=== PATIENT | female | born 1990 | race Caucasian/White ===

== ENCOUNTER 2016-04-19 17:00 | Emergency (ER) | payer MEDICAID ==
[2016-04-19 17:26] VITALS: BP 154/86
[2016-04-19] MEDS ORDERED: LORazepam 0.5 MG Tab ONE (17:32)
--- NOTE | 2016-04-20 08:57 | EDM.PDOC ---
ED HISTORY OF PRESENT ILLNESS - General Chief Complaint: Chest Pain Stated Complaint: CHEST PAIN Time Seen by Provider: 04/19/16 17:30 Source: Reports: Patient History Limitations: Reports: No limitations - History of Present Illness INITIAL COMMENTS - FREE TEXT/NARRATIVE: This is a 25yo F here for chest pain. Patient denies any sob or other issues. Patient has had this chest pain in the past, she has also seen cardiology and has been setup with an lab animal technician. Patient has had prior holter, EKG and Echo done without any findings. Patient does have history of anxiety. 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: , Other (see below) Other OB/BYN History: threatened miscarriage with second , history of preeclampsia Neurological History: Reports: Headaches, chronic Psychiatric History: Reports: Anxiety - Infectious Disease History Infectious Disease History: Reports: Chicken pox - Past Surgical History HEENT Surgical History: Reports: Tonsillectomy GI Surgical History: Reports: Appendectomy Social & Family History - Family History Family Medical History: Noncontributory Cardiac: Reports: Afib, Other (see below) Other Cardiac Family History: cardiac ablation for brother and father - Tobacco Use Smoking Status *Q: Current Every Day Smoker Years of Tobacco use: 10 Packs/Tins Daily: 0.2 Used Tobacco, but Quit: No Second Hand Smoke Exposure: No - Caffeine Use Caffeine Use: Reports: None - Recreational Drug Use Recreational Drug Use: No ED ROS GENERAL - Review of Systems Review Of Systems: ROS reveals no pertinent complaints other than HPI. ED EXAM, GENERAL - Physical Exam Exam: See Below Exam Limited By: No limitations General Appearance: alert, WD/WN, anxious Eye Exam: bilateral eye: EOMI, PERRL Ears: normal external exam Nose: normal inspection Throat/Mouth: Normal inspection Head: atraumatic, normocephalic Neck: normal inspection, supple, non-tender Respiratory/Chest: no respiratory distress, lungs clear, normal breath sounds Cardiovascular: normal peripheral pulses, tachycardia GI/Abdominal: normal bowel sounds, soft, non tender Extremities: normal inspection Neurological: alert, oriented, CN II-XII intact Psychiatric: normal affect, normal mood Skin Exam: Warm, Dry, Intact Course - Vital Signs Last Recorded V/S: Last Vital Signs Temp 36.9 C 04/19/16 17:07 Pulse Resp 18 04/19/16 17:07 BP 154/86 H 04/19/16 17:07 Pulse Ox 100 04/19/16 17:07 - Orders/Labs/Meds Orders: Active Orders 24 hr Category Date Time Status EKG Documentation Completion [RC] ASDIRECTED Care 04/19/16 17:13 Active Labs: Laboratory Tests 04/19/16 04/19/16 Range/Units 17:24 17:24 WBC 10.1 (4.0-11.0) K/uL RBC 4.96 (3.80-5.80) M/uL Hgb 15.0 (11.5-16.5) g/dL Hct 41.9 (37.0-47.0) % MCV 85 (76-96) fL MCH 30.2 (27.0-32.0) pg MCHC 35.8 H (31.0-35.0) g/dL RDW 12.9 (11.0-16.0) % Plt Count 170 (150-500) K/uL MPV 11.5 H (6.0-10.0) fL Neut % (Auto) 59.6 (45.0-70.0) % Lymph % (Auto) 32.7 (20.0-40.0) % [place] % (Auto) 5.8 (3.0-10.0) % Eos % (Auto) 1.7 (1.0-5.0) % Baso % (Auto) 0.2 (0.0-0.5) % Neut # 6.03 (2.00-7.50) K/uL Lymph # 3.31 (1.50-4.00) K/uL [place] # 0.59 (0.20-0.80) K/uL Eos # 0.17 (0.04-0.40) K/uL Baso # 0.02 (0.02-0.10) K/uL Sodium 140 (136-145) mmol/L Potassium 4.2 (3.5-5.1) mmol/L Chloride 103 (98-107) mmol/L Carbon Dioxide 27.2 (21.0-32.0) mmol/L Anion Gap 14.0 (5.0-15.0) mmol/L BUN 13 (8-26) mg/dL Creatinine 0.76 (0.55-1.02) mg/dL Est Cr Clr Drug Dosing 104.09 mL/min Estimated GFR (MDRD) > 60 (>60) MLS/MIN BUN/Creatinine Ratio 17.1 (6-25) Glucose 122 H D (74-100) mg/dL Calcium 8.8 (8.5-10.1) mg/dL Troponin I < 0.017 (0.000-0.060) ng/mL Meds: Medications Discontinued Medications Generic Name Dose Route Start Last Admin Trade Name Lennie PRN Reason Stop Dose Admin Lorazepam Confirm 04/19/16 17:32 Ativan Administered 04/19/16 17:33 Dose 3 mg .ROUTE .STK-MED ONE Departure - Departure Time of Disposition: 18:00 Disposition: Home, Self-Care 01 Condition: good Clinical Impression: Chest pain Qualifiers: Chest pain type: other chest pain Qualified Code(s): R07.89 - Other chest pain ; R07.8 - Other chest pain Instructions: Paroxysmal Supraventricular Tachycardia, Lorazepam tablets Referrals: PCP,Unknown [Primary Care Provider] - Forms: ED Department Discharge Additional Instructions: May take Lorazepam 0.5mg (1 tab) by mouth every 6 hours as needed for anxiety. Keep appointment with your Polishing Wheel Setter. Follow up either at the clinic or ER if you continue to have chest pain and heart palpitations. - Problem List Review Problem List Initiated/Reviewed/Updated: Yes - My Orders Last 24 Hours: My Active Orders 04/19/16 17:13 EKG Documentation Completion [RC] ASDIRECTED - Assessment/Plan Last 24 Hours: My Active Orders 04/19/16 17:13 EKG Documentation Completion [RC] ASDIRECTED Plan: Patient will f/u with electrophysiology consult in 2 wks. This pain is likely due to anxiety or also possibly from SVT but these were not observed or recorded on EKG nor on prior holter. She will be given temporary lorazepam 6 tablets total as this has helped her symptoms in the past. She has significant family history of SVT in her dad and brother bother requiring ablation and this may be likely her route to resolution. Counseled on close monitoring and f/u as directed and as needed.
== END 2016-04-19 18:06 | disposition home or self-care (01) ==
LOC: LB.ED 17:00
DX: R07.89 Other chest pain (principal); I10 Essential (primary) hypertension; F41.9 Anxiety disorder, unspecified; F17.210 Nicotine dependence, cigarettes, uncomplicated; Z91.09 Other allergy status, other than to drugs and biological substances; Z98.890 Other specified postprocedural states; Z90.49 Acquired absence of other specified parts of digestive tract
CPT/HCPCS: 36415; 80048; 84484; 85025; 93005; 99283-25

== ENCOUNTER 2016-08-02 14:24 | Emergency (ER) | payer MEDICAID ==
--- NOTE | 2016-08-02 14:31 | EDM.PDOC ---
ED HPI GENERAL MEDICAL PROBLEM - General Chief Complaint: Chest Pain Stated Complaint: chest pressure Time Seen by Provider: 08/02/16 14:31 Source of Information: Reports: Patient History Limitations: Reports: No Limitations - History of Present Illness INITIAL COMMENTS - FREE TEXT/NARRATIVE: This is a 25yo F here for chest discomfort and a racing heart. Patient states she has had this issue for months and has been worked up with Cardiology and the credit collection specialist and placed on Propranolol. Patient states there is some improvement but she continues to have chest discomfort and racing heart episodes. She is here for the same symptoms she has frequently for the past few months. Patient denies any lightheadedness, no syncope, no fever, no chills, and no other symptoms. 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: , 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 (See Below) Other OB/BYN History: threatened miscarriage with second , history of preeclampsia Neurological History: Reports: Headaches, Chronic Psychiatric History: Reports: Anxiety - Infectious Disease History Infectious Disease History: Reports: Chicken Pox - Past Surgical History HEENT Surgical History: Reports: Tonsillectomy GI Surgical History: Reports: Appendectomy Social & Family History - Family History Family Medical History: Noncontributory Cardiac: Reports: Afib, Other (See Below) Other Cardiac Family History: cardiac ablation for brother and father - Tobacco Use Smoking Status *Q: Current Every Day Smoker Years of Tobacco use: 10 Packs/Tins Daily: 0.2 Used Tobacco, but Quit: No Second Hand Smoke Exposure: No - Caffeine Use Caffeine Use: Reports: None - Recreational Drug Use Recreational Drug Use: No ED ROS GENERAL - Review of Systems Review Of Systems: ROS reveals no pertinent complaints other than HPI. ED EXAM, GENERAL - Physical Exam Exam: See Below Exam Limited By: No Limitations General Appearance: Alert, WD/WN, Anxious Eye Exam: Bilateral Eye: EOMI, PERRL Ears: Normal External Exam Nose: Normal Inspection Throat/Mouth: Normal Inspection Head: Atraumatic, Normocephalic Neck: Normal Inspection, Supple Respiratory/Chest: No Respiratory Distress, Lungs Clear, Normal Breath Sounds Cardiovascular: Normal Peripheral Pulses, Regular Rate, Rhythm, No Edema, No Gallop, No JVD, No Murmur, No Rub GI/Abdominal: Normal Bowel Sounds, Soft, Non-Tender Extremities: Normal Inspection, Normal Range of Motion Neurological: Alert, Oriented, CN II-XII Intact Psychiatric: Normal Affect, Anxious Skin Exam: Warm, Dry, Intact EKG INTERPRETATION Rhythm: NSR [place]: Normal P-Wave: Present QRS: Normal ST-T: Normal QT: Normal Course - Vital Signs Last Recorded V/S: Last Vital Signs Temp 36.6 C 08/02/16 15:24 Pulse 67 08/02/16 15:24 Resp 18 08/02/16 15:24 BP 117/76 08/02/16 15:24 Pulse Ox 99 08/02/16 15:24 - Orders/Labs/Meds Orders: Active Orders 24 hr Category Date Time Status EKG Documentation Completion [RC] ASDIRECTED Care 08/02/16 14:32 Active Labs: Laboratory Tests 08/02/16 08/02/16 Range/Units 15:00 15:00 WBC 10.7 (4.0-11.0) K/uL RBC 5.16 (3.80-5.80) M/uL Hgb 15.8 (11.5-16.5) g/dL Hct 44.3 (37.0-47.0) % MCV 86 (76-96) fL MCH 30.6 (27.0-32.0) pg MCHC 35.7 H (31.0-35.0) g/dL RDW 13.0 (11.0-16.0) % Plt Count 208 D (150-500) K/uL MPV 11.4 H (6.0-10.0) fL Neut % (Auto) 59.5 (45.0-70.0) % Lymph % (Auto) 32.2 (20.0-40.0) % [place] % (Auto) 5.4 (3.0-10.0) % Eos % (Auto) 2.6 (1.0-5.0) % Baso % (Auto) 0.3 (0.0-0.5) % Neut # (Auto) 6.38 (2.00-7.50) K/uL Lymph # (Auto) 3.45 (1.50-4.00) K/uL [place] # (Auto) 0.58 (0.20-0.80) K/uL Eos # (Auto) 0.28 (0.04-0.40) K/uL Baso # (Auto) 0.03 (0.02-0.10) K/uL Sodium 138 (136-145) mmol/L Potassium 3.7 (3.5-5.1) mmol/L Chloride 102 (98-107) mmol/L Carbon Dioxide 28.0 (21.0-32.0) mmol/L Anion Gap 11.7 (5.0-15.0) mmol/L BUN 13 (8-26) mg/dL Creatinine 0.72 (0.55-1.02) mg/dL Est Cr Clr Drug Dosing TNP Estimated GFR (MDRD) > 60 (>60) MLS/MIN BUN/Creatinine Ratio 18.1 (6-25) Glucose 101 H (74-100) mg/dL Calcium 9.2 (8.5-10.1) mg/dL Magnesium 2.1 (1.8-2.4) mg/dL Total Bilirubin 0.4 D (0.0-1.0) mg/dL AST 14 L (15-37) U/L ALT 21 (12-78) U/L Alkaline Phosphatase 92 (46-116) U/L Troponin I < 0.017 (0.000-0.060) ng/mL B-Natriuretic Peptide 33 (0-125) pg/mL Total Protein 7.4 (6.4-8.2) g/dL Albumin 4.0 (3.4-5.0) g/dL Globulin 3.4 (2.2-4.2) g/dL Albumin/Globulin Ratio 1.2 (0.8-2.0) TSH, Ultra Sensitive 1.304 D (0.358-3.740) uIU/mL - Re-Assessments/Exams Free Text/Narrative Re-Assessment/Exam: BP normalized after resting on stretcher. Departure - Departure Time of Disposition: 16:00 Disposition: Home, Self-Care 01 Condition: Good Clinical Impression: Panic anxiety syndrome Referrals: PCP,Unknown [Primary Care Provider] - Forms: ED Department Discharge - Problem List Review Problem List Initiated/Reviewed/Updated: Yes - My Orders Last 24 Hours: My Active Orders 08/02/16 14:32 EKG Documentation Completion [RC] ASDIRECTED - Assessment/Plan Last 24 Hours: My Active Orders 08/02/16 14:32 EKG Documentation Completion [RC] ASDIRECTED Plan: Counseled on continued f/u with Cardiology as directed for further workup as needed. Discussed labs and EKG and reassurance today. Discussed continued monitoring and f/u with Rheumatology for further workup of positive BHANU.
[2016-08-02 15:24] VITALS: BP 117/76
== END 2016-08-02 15:29 | disposition home or self-care (01) ==
LOC: LB.ED 14:24
DX: F41.9 Anxiety disorder, unspecified (principal); I10 Essential (primary) hypertension; Z90.49 Acquired absence of other specified parts of digestive tract; Z98.890 Other specified postprocedural states; F17.210 Nicotine dependence, cigarettes, uncomplicated; Z88.8 Allergy status to other drugs, medicaments and biological substances
CPT/HCPCS: 36415; 80053; 83735; 83880; 84443; 84484; 85025; 93005; 99285-25

== ENCOUNTER 2017-01-16 18:25 | Emergency (ER) | payer MEDICAID ==
[2017-01-16] MEDS ORDERED: Aspirin 81 MG Tab.Chew PO ONE (18:58)
[2017-01-16] MEDS ORDERED: Nitroglycerin 0.4 MG Tab.SL SL PRN (18:58)
--- NOTE | 2017-01-16 19:06 | EDM.PDOC ---
ED HPI GENERAL MEDICAL PROBLEM - General Chief Complaint: Cardiovascular Problem Stated Complaint: CHEST PAIN Time Seen by Provider: 01/16/17 18:52 Source of Information: Reports: Patient, RN History Limitations: Reports: No Limitations - History of Present Illness INITIAL COMMENTS - FREE TEXT/NARRATIVE: 26yr female presents to ER with mid-sternal chest pain, states pain 7 on activity and 2-4 with lying still. States she has had pain for about 2 days. She states she does take propanolol for an irregular heart rate. Slight shortness of breath at times. Pt is alert and in no acute distress and ambulatory ,on admit. Significant other and children are in the car, will have them come into the facility. EKG ordered and shows NSR, Chest x-ray ordered. CBC, CMP, troponin, D-dimer. Saline lock IV. ASA and nitro ordered. CHEST PAIN Pain Score (Numeric/FACES): 7 - Related Data Allergies Allergy/AdvReac Type Severity Reaction Status Date / Time paclitaxel Allergy Itching Verified 01/16/17 19:15 Home Meds: Home Meds Imipramine HCl [Imipramine HCl] 1 tab PO BEDTIME 01/16/17 [History] LORazepam [LORazepam] 1 tab PO Q6HR PRN 01/16/17 [History] Propranolol HCl [Propranolol HCl] 1 tab PO BID 01/16/17 [History] Ranitidine HCl [Ranitidine HCl] 1 tab PO DAILY PRN 01/16/17 [History] Past Medical History Cardiovascular History: Reports: Arrhythmia, Hypertension, Other (See Below) Other Cardiovascular History: heart palpitations 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: , 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 (See Below) Other OB/BYN History: threatened miscarriage with second , history of preeclampsia Neurological History: Reports: Headaches, Chronic Psychiatric History: Reports: Anxiety - Infectious Disease History Infectious Disease History: Reports: Chicken Pox - Past Surgical History HEENT Surgical History: Reports: Tonsillectomy GI Surgical History: Reports: Appendectomy Social & Family History - Family History Family Medical History: Noncontributory Cardiac: Reports: Afib, Other (See Below) Other Cardiac Family History: cardiac ablation for brother and father - Tobacco Use Smoking Status *Q: Current Every Day Smoker Years of Tobacco use: 10 Packs/Tins Daily: 0.2 Used Tobacco, but Quit: No Second Hand Smoke Exposure: No - Caffeine Use Caffeine Use: Reports: None - Alcohol Use Days Per Week of Alcohol Use: 1 Number of Drinks Per Day: 2 Total Drinks Per Week: 2 - Recreational Drug Use Recreational Drug Use: No ED ROS GENERAL - Review of Systems Review Of Systems: See Below Constitutional: Reports: No Symptoms HEENT: Reports: No Symptoms Respiratory: Reports: Shortness of Breath Cardiovascular: Reports: Chest Pain GI/Abdominal: Reports: No Symptoms ED EXAM, GENERAL - Physical Exam Exam: See Below Exam Limited By: No Limitations General Appearance: Alert, No Apparent Distress Ears: Normal External Exam Nose: Normal Inspection, Normal Mucosa Throat/Mouth: Normal Inspection, Normal Lips Head: Atraumatic, Normocephalic Neck: Normal Inspection, Supple, Non-Tender Respiratory/Chest: No Respiratory Distress, Lungs Clear Cardiovascular: Normal Peripheral Pulses, Regular Rate, Rhythm, No Edema, No Murmur Peripheral Pulses: 2+: Dorsalis Pedis (L), Dorsalis Pedis (R) GI/Abdominal: Normal Bowel Sounds, Soft, Non-Tender, No Distention Extremities: Normal Inspection, Non-Tender, No Pedal Edema Neurological: Alert, Oriented, Normal Cognition Psychiatric: Normal Affect, Normal Mood Skin Exam: Warm, Dry, Intact, Normal Color Course - Vital Signs Last Recorded V/S: Last Vital Signs Temp 98.6 F 01/16/17 18:53 Pulse 86 01/16/17 19:25 Resp 20 01/16/17 18:53 BP 141/97 H 01/16/17 19:25 Pulse Ox 99 01/16/17 18:53 - Orders/Labs/Meds Orders: Active Orders 24 hr Category Date Time Status Cardiac Monitoring [RC] .As Directed Care 01/16/17 18:58 Active EKG Documentation Completion [RC] ASDIRECTED Care 01/16/17 19:00 Active Chest 1V Frontal [CR] Stat Exams 01/16/17 18:59 Taken Nitroglycerin [Nitrostat] Med 01/16/17 18:58 Active 0.4 mg SL Q5M PRN EKG 12 Lead [EK] Stat Ther 01/16/17 18:59 Ordered Medication Orders Nitroglycerin (Nitrostat) 0.4 mg SL Q5M PRN PRN Reason: Chest Pain Stop: 01/17/17 19:00 Last Admin: 01/16/17 19:02 Dose: 0.4 mg Labs: Laboratory Tests 01/16/17 01/16/17 01/16/17 Range/Units 18:50 18:50 18:50 WBC 10.0 (4.0-11.0) K/uL RBC 4.65 (3.80-5.80) M/uL Hgb 14.0 (11.5-16.5) g/dL Hct 40.3 (37.0-47.0) % MCV 87 (76-96) fL MCH 30.1 (27.0-32.0) pg MCHC 34.7 (31.0-35.0) g/dL RDW 12.1 (11.0-16.0) % Plt Count 192 (150-500) K/uL MPV 11.0 H (6.0-10.0) fL Neut % (Auto) 59.7 (45.0-70.0) % Lymph % (Auto) 31.9 (20.0-40.0) % [place] % (Auto) 6.3 (3.0-10.0) % Eos % (Auto) 1.9 (1.0-5.0) % Baso % (Auto) 0.2 (0.0-0.5) % Neut # (Auto) 5.97 (2.00-7.50) K/uL Lymph # (Auto) 3.19 (1.50-4.00) K/uL [place] # (Auto) 0.63 (0.20-0.80) K/uL Eos # (Auto) 0.19 (0.04-0.40) K/uL Baso # (Auto) 0.02 (0.02-0.10) K/uL D-Dimer, Quantitative < 100 (0-400) ng/mL Sodium 141 (136-145) mmol/L Potassium 4.0 (3.5-5.1) mmol/L Chloride 103 (98-107) mmol/L Carbon Dioxide 28.9 (21.0-32.0) mmol/L Anion Gap 13.1 (5.0-15.0) mmol/L BUN 9 D (8-26) mg/dL Creatinine 0.71 (0.55-1.02) mg/dL Est Cr Clr Drug Dosing 110.43 mL/min Estimated GFR (MDRD) > 60 (>60) MLS/MIN BUN/Creatinine Ratio 12.7 (6-25) Glucose 117 H (74-100) mg/dL Calcium 9.2 (8.5-10.1) mg/dL Total Bilirubin 0.3 (0.0-1.0) mg/dL AST 16 (15-37) U/L ALT 34 (12-78) U/L Alkaline Phosphatase 90 (46-116) U/L Troponin I < 0.017 (0.000-0.060) ng/mL Total Protein 7.1 (6.4-8.2) g/dL Albumin 3.9 (3.4-5.0) g/dL Globulin 3.2 (2.2-4.2) g/dL Albumin/Globulin Ratio 1.2 (0.8-2.0) Meds: Medications Generic Name Dose Route Start Last Admin Trade Name Freq PRN Reason Stop Dose Admin Nitroglycerin 0.4 mg 01/16/17 18:58 01/16/17 19:02 Nitrostat SL 01/17/17 19:00 0.4 mg Q5M PRN Administration Chest Pain Discontinued Medications Generic Name Dose Route Start Last Admin Trade Name Freq PRN Reason Stop Dose Admin Aspirin 324 mg 01/16/17 18:58 01/16/17 19:02 Aspirin PO 01/16/17 18:59 324 mg ONETIME ONE Administration - Re-Assessments/Exams Free Text/Narrative Re-Assessment/Exam: 01/16/17 19:45 Reviewed EKG, labs and chest x-ray with pt. Troponins negative, d-dimer negative, Chest x-ray reviewed, CBC and CMP reviewed. Pt should F/U with primary care provider for any blood pressure concerns. States BP usually 120/ 80 at home. States pain is better. Some discomfort to arm and left chest. States she does lift up to 50 # at work and works about 4days each week. Discussed option of lifting with assistance to prevent injury to arm. Recommend Tylenol, Ibuprofen or Aleve for any pain at home. Recommend taking NSAID with food to prevent stomach upset. Pt states she does have Tylenol at home. Pt discharge to self care, and significant other will drive her home. Departure - Departure Time of Disposition: 19:52 Disposition: Home, Self-Care 01 Condition: Good Clinical Impression: Chest pain Qualifiers: Chest pain type: other chest pain Qualified Code(s): R07.89 - Other chest pain Instructions: Nonspecific Chest Pain, [id number] Referrals: PCP,None [Primary Care Provider] - Forms: ED Department Discharge Additional Instructions: May take Ibuprofen or Aleve according to package instructions for pain as needed. If taking pain medications, take with food to avoid upset stomach which may be caused by their use. May also apply hot pack to affected area for added pain relief. Activity as tolerated. Continue with all other previously prescribed medications. Follow up in clinic with regular provider as needed. Call with any questions. - My Orders Last 24 Hours: My Active Orders 01/16/17 18:58 Cardiac Monitoring [RC] .As Directed Nitroglycerin [Nitrostat] 0.4 mg SL Q5M PRN 01/16/17 18:59 Chest 1V Frontal [CR] Stat EKG 12 Lead [EK] Stat 01/16/17 19:00 EKG Documentation Completion [RC] ASDIRECTED - Assessment/Plan Last 24 Hours: My Active Orders 01/16/17 18:58 Cardiac Monitoring [RC] .As Directed Nitroglycerin [Nitrostat] 0.4 mg SL Q5M PRN 01/16/17 18:59 Chest 1V Frontal [CR] Stat EKG 12 Lead [EK] Stat 01/16/17 19:00 EKG Documentation Completion [RC] ASDIRECTED
[2017-01-16 19:25] VITALS: BP 141/97
--- NOTE | 2017-01-17 07:38 | CR ---
DATE OF SERVICE: 01/16/17 CLINICAL DATA: Chest Pain AP PORTABLE CHEST: The heart size is normal. The lungs are clear. No pneumothorax. No pleural effusions. No areas of consolidation. There is a right convexity scoliosis of the mid thoracic spine. IMPRESSION: No evidence of acute intrathoracic disease. [id number] [facility]
== END 2017-01-16 19:47 | disposition home or self-care (01) ==
LOC: LB.ED 18:25
DX: R07.89 Other chest pain (principal); I10 Essential (primary) hypertension; F17.210 Nicotine dependence, cigarettes, uncomplicated; F41.9 Anxiety disorder, unspecified; Z79.899 Other long term (current) drug therapy; Z88.8 Allergy status to other drugs, medicaments and biological substances
CPT/HCPCS: 36415; 71010; 80053; 84484; 85025; 85379; 93005; 99285; A9270